=== PATIENT | female | born 1960 ===

== ENCOUNTER 2018-01-22 20:58 | Emergency (ER) | payer OTHER ==
[2018-01-22 22:17] VITALS: RESP 18; TEMP 97.6
[2018-01-22 23:09] LABS: BASO % 0.4 % (0.0-2.0); EOS # 0.4 K/uL (0.0-0.7); EOS % 3.7 % (0.0-4.0); HEMOGLOBIN 12.2 g/dL (12.0-16.0); LYMPH # 2.4 K/uL (1.0-4.3); LYMPH % 25.4 % (20.0-40.0); MEAN CELL VOLUME 89.1 fl (81.0-99.0); MEAN CORPUSCULAR HEMOGLOBIN 29.3 pg (27.0-31.0); MEAN CORPUSCULAR HGB CONC 32.8 g/dL (33.0-37.0); MEAN PLATELET VOLUME 8.6 fl (7.2-11.7); MONO % 10.1 % (0.0-10.0); NEUT # 5.7 K/uL (1.8-7.0); NEUT % 60.4 % (50.0-75.0); NRBC % 0.1 % (0.0-0.0); RBC 4.17 Mil/uL (3.80-5.20); RED CELL DISTRIBUTION WIDTH 13.7 % (11.5-14.5); WHITE BLOOD COUNT 9.4 K/uL (4.8-10.8)
[2018-01-22 23:20] LABS: ALB/GLOB RATIO 1.1 (1.0-2.1); ALBUMIN 3.9 g/dL (3.5-5.0); ALT/SGPT 35 U/L (9-52); AST/SGOT 28 U/L (14-36); BLOOD UREA NITROGEN 21 mg/dl (7-17); CALCIUM 9.1 mg/dL (8.4-10.2); GFR NON-AFRICAN AMERICAN > 60; LIPASE 73 U/L (23-300)
--- NOTE | 2018-01-23 00:14 | ED PDOC ---
Syncope/Near Syncope/Dizziness Time Seen by Provider: 01/22/18 22:26 Chief Complaint (Nursing): Dizziness/Lightheaded Chief Complaint (Provider): Dizziness/Lightheaded History Per: Patient History/Exam Limitations: no limitations Onset/Duration Of Symptoms: Days (x7) Activity At Onset Of Symptoms: Walking Associated Symptoms Preceding Syncopal Episode: Lightheadedness Additional Complaint(s): 57 years old female presents to ER for evaluation of dizziness, nausea and mild headache for a week. Patient reports feeling dizzy when waking up in the morning but today it lasted all day ling. She states symptoms worsen with walking and reports feeling as if she is going to fall down. Patient also reports light headedness that she feels like she is going to pass out. She denies vomiting, focal weakness or numbness. PMD: non provided Past Medical History Reviewed: Historical Data, Nursing Documentation, Vital Signs Vital Signs: Last Vital Signs Temp 97.6 F 01/22/18 22:14 Pulse 73 01/22/18 22:14 Resp 18 01/22/18 22:14 BP 137/83 01/22/18 22:14 Pulse Ox 98 01/22/18 22:14 - Medical History PMH: No Chronic Diseases - Surgical History Surgical History: No Surg Hx - Family History Family History: States: Hypertension - Social History Current smoker - smoking cessation education provided: No Alcohol: None Drugs: Denies - Home Medications Home Medications: Ambulatory Orders Medication Instructions Recorded RX: Meclizine [Meclizine*] 25 mg PO Q6 #30 tab 01/23/18 - Allergies Allergies/Adverse Reactions: Allergies Allergy/AdvReac Type Severity Reaction Status Date / Time No Known Allergies Allergy Verified 01/22/18 22:14 Review of Systems ROS Statement: Except As Marked, All Systems Reviewed And Found Negative Cardiovascular: Positive for: Light Headedness Gastrointestinal: Negative for: Vomiting Neurological: Positive for: Headache (mild), Dizziness. Negative for: Weakness (focal), Numbness Physical Exam - Reviewed Nursing Documentation Reviewed: Yes Vital Signs Reviewed: Yes - Physical Exam Appears: Positive for: Well, No Acute Distress Head Exam: Positive for: ATRAUMATIC, NORMOCEPHALIC Skin: Positive for: Normal Color, Warm, Dry Eye Exam: Positive for: Normal appearance, EOMI, PERRL ENT: Negative for: Pharyngeal Erythema, Tonsillar Exudate Neck: Positive for: Painless ROM, Supple Cardiovascular/Chest: Positive for: Regular Rate, Rhythm. Negative for: Murmur Respiratory: Positive for: Normal Breath Sounds. Negative for: Respiratory Distress Gastrointestinal/Abdominal: Positive for: Soft. Negative for: Tenderness Back: Positive for: Normal Inspection. Negative for: Decreased ROM Extremity: Positive for: Normal ROM. Negative for: Deformity Lymphatic: Negative for: Adenopathy Neurologic/Psych: Positive for: Alert, Oriented (x3), Cerebellar Tests (normal), Other (Cranial nerves intact, negative sania hallpike test.). Negative for: Motor/Sensory Deficits - Laboratory Results Result Diagrams: 01/22/18 23:05 01/22/18 23:05 - ECG O2 Sat by Pulse Oximetry: 98 (RA) Pulse Ox Interpretation: Normal Medical Decision Making Medical Decision Making: Time: 2247 Initial Impression: Dizziness. Differential includes but not limited to dehydration, vertigo, electrolyte abnormality and anemia Initial Plan: --Type and screen --CT head w/o contrast --EKG --CMP --Lipase --Magnesium --Phosphorous --Urine dipstick --CBC --Antivert [address] head w/o contrast FINDINGS: BRAIN No acute intraparenchymal hemorrhage. No mass lesion. No CT evidence for acute territorial infarct. No midline shift or extra-axial collections. VENTRICLES: No hydrocephalus. ORBITS: The orbits are unremarkable. SINUSES AND MASTOIDS: The paranasal sinuses and mastoid air cells are clear. BONES: No fracture. SOFT TISSUES: Unremarkable. MISCELLANEOUS: There is likely a moderate size arachnoid cyst occupying the anterior portion of the right middle cranial fossa. No acute intracranial pathology identified. IMPRESSION: 1. There is likely a moderate size arachnoid cyst occupying the anterior portion of the right middle cranial fossa. 2. No acute intracranial pathology identified. [address] Gant, pending urine and reassessment. Scribe Attestation: Documented by Nelly Berman, acting as a scribe for Loan Gamble MD. Provider Scribe Attestation: All medical record entries made by the Scribe were at my direction and personally dictated by me. I have reviewed the chart and agree that the record accurately reflects my personal performance of the history, physical exam, medical decision making, and the department course for this patient. I have also personally directed, reviewed, and agree with the discharge instructions and disposition. Disposition - Clinical Impression Clinical Impression: Dizziness - Disposition Disposition: Transfer of Care Disposition Time: 00:00 Condition: STABLE Prescriptions: RX: Meclizine [Meclizine*] 25 mg PO Q6 #30 tab Print Language: UZBEK
--- NOTE | 2018-01-23 00:43 | ED PDOC ---
- Laboratory Results Result Diagrams: 01/22/18 23:05 01/22/18 23:05 - ECG O2 Sat by Pulse Oximetry: 98 (RA) Pulse Ox Interpretation: Normal Medical Decision Making Medical Decision Makin Received endorsement from Dr. Gamble, pending urine and reassessment. 0230 Patient is walking around ER, very well appearing Patient states she feels much better Very well appearing, tolerating PO, stable gait upon discharge Scribe Attestation: Documented by Nelly Berman, acting as a scribe for Ziyad Gant MD. Provider Scribe Attestation: All medical record entries made by the Scribe were at my direction and personally dictated by me. I have reviewed the chart and agree that the record accurately reflects my personal performance of the history, physical exam, medical decision making, and the department course for this patient. I have also personally directed, reviewed, and agree with the discharge instructions and disposition. Disposition - Clinical Impression Clinical Impression: Dizziness - POA Present On Arrival: None - Disposition Referrals: [facility] [Outside] Disposition: Routine/Home Disposition Time: 02:30 Condition: STABLE Prescriptions: Meclizine [Meclizine*] 25 mg PO Q6 #30 tab Instructions: Vertigo (a Type of Dizziness) Forms: [employer] (Guinean) Print Language: MACEDONIAN
[2018-01-23 01:42] VITALS: BP 119/72; PULSE 75
[2018-01-23 03:03] VITALS: O2SAT 98
--- NOTE | 2018-01-23 07:23 | CT ---
Date of service: 01/22/2018 PROCEDURE: CT HEAD WITHOUT CONTRAST. HISTORY: dizziness COMPARISON: None available. TECHNIQUE: Axial computed tomography images were obtained through the head/brain without intravenous contrast. Radiation dose: Total exam DLP = 711.9 mGy-cm. This CT exam was performed using one or more of the following dose reduction techniques: Automated exposure control, adjustment of the mA and/or kV according to patient size, and/or use of iterative reconstruction technique. FINDINGS: HEMORRHAGE: No intracranial hemorrhage. BRAIN: No mass effect or edema. No atrophy or chronic microvascular ischemic changes. VENTRICLES: Unremarkable. No hydrocephalus. CALVARIUM: Unremarkable. PARANASAL SINUSES: Unremarkable as visualized. No significant inflammatory changes. MASTOID AIR CELLS: Unremarkable as visualized. No inflammatory changes. OTHER FINDINGS: 4.2 centimeter right anterior temporal arachnoid cyst. IMPRESSION: 4.2 centimeter right anterior temporal arachnoid cyst. No acute hemorrhage.
--- NOTE | 2018-01-23 17:35 | CARD ---
APPROVED REPORT Date of service: 01/23/2018 EKG Measurement Heart [id number] <Conclusion> Normal sinus rhythm Inferior infarct, age undetermined Abnormal ECG
== END 2018-01-23 02:52 | disposition home or self-care (01) ==
LOC: H.ER 20:58
DX: R42 Dizziness and giddiness (principal)